=== PATIENT | female | born 1975 | race Caucasian/White ===

== ENCOUNTER 2020-01-29 19:00 | Emergency (ER) | payer BC, MEDICAID ==
--- NOTE | 2020-01-29 20:05 | EDM.PDOC ---
ED HPI GENERAL MEDICAL PROBLEM - General Chief Complaint: Respiratory Problem Stated Complaint: POSSIBLE ANEMIA Time Seen by Provider: 01/29/20 19:24 Source of Information: Reports: Patient History Limitations: Reports: No Limitations - History of Present Illness INITIAL COMMENTS - FREE TEXT/NARRATIVE: Presents reporting the patient states that she was diagnosed with pneumonia about 2 weeks ago over in [place] where she resides. She has since been on "2 rounds of antibiotics and 3 rounds of steroids". She came here because she has pain from coughing around her lower rib cage and abdomen. She wants to be put on IV antibiotics but her physicians in [place] have declined, instead placing her on oral antibiotics. States she had two negative Covid tests. She has a history of anemia, myasthenia gravis, hypertension, polycythemia vera and bipolar disorder. She smokes cigarettes. Been taking nebulizer treatments at home. generalized Pain Score (Numeric/FACES): 8 - Related Data Allergies Allergy/AdvReac Type Severity Reaction Status Date / Time adhesive tape Allergy Blisters Verified 01/29/20 19:15 bupropion [From Wellbutrin] Allergy Anaphylactic Verified 01/29/20 19:15 Shock hydromorphone [From Dilaudid] Allergy Rash Verified 01/29/20 19:15 Latex, Natural Rubber Allergy Anaphylactic Verified 01/29/20 19:15 Shock varenicline [From Chantix] Allergy Anaphylactic Verified 01/29/20 19:15 Shock Home Meds: Home Meds Albuterol [Ventolin HFA] 18 gm IH ASDIRECTED 01/29/20 [History] Budesonide [Pulmicort Flexhaler] 1 puff INH ASDIRECTED 01/29/20 [History] Doxepin [SINEquan] 10 mg PO DAILY 01/29/20 [History] FLUoxetine [Fluoxetine HCl] 100 mg PO DAILY 01/29/20 [History] LORazepam [Ativan] 1 mg PO ASDIRECTED 01/29/20 [History] Nitroglycerin 1 tab PO Q5M PRN 01/29/20 [History] Orphenadrine [Norflex] 100 mg PO DAILY 01/29/20 [History] Prazosin [Minpress] 1 mg PO DAILY 01/29/20 [History] Promethazine [Phenergan] 12.5 mg PO DAILY 01/29/20 [History] Promethazine/Phenyleph/Codeine [Pzknzmrtsaqm-CG-Fkzyaej Syrup] 0 mg PO ASDIRECTED 01/29/20 [History] QUEtiapine [SEROquel] 300 mg PO DAILY 01/29/20 [History] SUMAtriptan [Imitrex] 100 mg PO DAILY 01/29/20 [History] Topiramate 150 mg PO BID 01/29/20 [History] hydrOXYzine HCL [hydrOXYzine] 50 mg PO DAILY 01/29/20 [History] lamoTRIgine [Lamotrigine] 25 mg PO DAILY 01/29/20 [History] predniSONE [Prednisone] 10 mg PO DAILY 01/29/20 [History] Past Medical History Cardiovascular History: Reports: Angina, High Cholesterol, Hypertension Respiratory History: Reports: Asthma, Bronchitis, Recurrent Genitourinary History: Reports: UTI, Recurrent, Other (See Below) Other Genitourinary History: Chronic BV 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: Musculoskeletal History: Reports: Arthritis, Fibromyalgia Neurological History: Reports: Migraines Psychiatric History: Reports: Bipolar, Depression, PTSD Endocrine/Metabolic History: Reports: Diabetes, Type II Hematologic History: Reports: Anemia Other Hematologic History: Autoimmune disorders - Infectious Disease History Infectious Disease History: Reports: Chicken Pox, Shingles - Past Surgical History HEENT Surgical History: Reports: Tonsillectomy Other Cardiovascular Surgeries/Procedures: angiogram GI Surgical History: Reports: Cholecystectomy Other GI Surgeries/Procedures: Gastric bypass surgery. Partial intestine removal Female Surgical History: Reports: Hysterectomy, Kidney stone extraction Social & Family History - Tobacco Use Tobacco Use Status *Q: Current Every Day Tobacco User Years of Tobacco use: 30 Packs/Tins Daily: 0.2 - Recreational Drug Use Recreational Drug Use: Yes Recreational Drug Type: Reports: Marijuana/Hashish Recreational Drug Use Frequency: Socially ED ROS GENERAL - Review of Systems Review Of Systems: Comprehensive ROS is negative, except as noted in HPI. Constitutional: Denies: Fever ED EXAM, GENERAL - Physical Exam Exam: See Below General Appearance: Alert, No Apparent Distress Ears: Normal External Exam, Normal TMs Nose: Normal Inspection Throat/Mouth: Normal Inspection, Normal Oropharynx Head: Atraumatic, Normocephalic Neck: Normal Inspection Respiratory/Chest: No Respiratory Distress, Lungs Clear, Normal Breath Sounds Cardiovascular: Normal Peripheral Pulses, Regular Rate, Rhythm, No Murmur GI/Abdominal: Soft Back Exam: Normal Inspection Extremities: Normal Inspection Neurological: Alert, Oriented, Normal Cognition Psychiatric: Normal Affect, Normal Mood Skin Exam: Warm, Dry, Intact, Normal Color, No Rash Lymphatic: No Adenopathy Course - Vital Signs Last Recorded V/S: Last Vital Signs Temp 36.4 C 01/29/20 19:24 Pulse 94 01/29/20 19:24 Resp 17 01/29/20 19:24 BP 125/82 01/29/20 19:24 Pulse Ox 105 H 01/29/20 19:24 - Orders/Labs/Meds Labs: Laboratory Tests 01/29/20 01/29/20 Range/Units 20:15 20:15 WBC 12.97 H (4.0-11.0) K/uL RBC 4.97 (4.30-5.90) M/uL Hgb 14.0 (12.0-16.0) g/dL Hct 42.4 (36.0-46.0) % MCV 85.3 (80.0-98.0) fL MCH 28.2 (27.0-32.0) pg MCHC 33.0 (31.0-37.0) g/dL RDW Std Deviation 58.4 (28.0-62.0) fl RDW Coeff of Cassie 19 H (11.0-15.0) % Plt Count 254 (150-400) K/uL MPV 8.80 (7.40-12.00) fL Neut % (Auto) 80.6 H (48.0-80.0) % Lymph % (Auto) 13.0 L (16.0-40.0) % [place] % (Auto) 5.0 (0.0-15.0) % Eos % (Auto) 0.9 (0.0-7.0) % Baso % (Auto) 0.5 (0.0-1.5) % Neut # (Auto) 10.5 H (1.4-5.7) K/uL Lymph # (Auto) 1.7 (0.6-2.4) K/uL [place] # (Auto) 0.7 (0.0-0.8) K/uL Eos # (Auto) 0.1 (0.0-0.7) K/uL Baso # (Auto) 0.1 (0.0-0.1) K/uL Nucleated RBC % 0.0 /100WBC Nucleated RBCs # 0 K/uL Sodium 142 (136-145) mmol/L Potassium 3.9 (3.5-5.1) mmol/L Chloride 110 H (98-107) mmol/L Carbon Dioxide 19.1 L (21.0-32.0) mmol/L BUN 14 (7.0-18.0) mg/dL Creatinine 0.9 (0.6-1.0) mg/dL Est Cr Clr Drug Dosing 70.32 mL/min Estimated GFR (MDRD) > 60.0 ml/min Glucose 83 (74-106) mg/dL Calcium 8.1 L (8.5-10.1) mg/dL Total Bilirubin 0.2 (0.2-1.0) mg/dL AST 16 (15-37) IU/L ALT 31 (14-63) IU/L Alkaline Phosphatase 109 (46-116) U/L Total Protein 6.1 L (6.4-8.2) g/dL Albumin 3.0 L (3.4-5.0) g/dL Globulin 3.1 (2.6-4.0) g/dL Albumin/Globulin Ratio 1.0 (0.9-1.6) - Re-Assessments/Exams Free Text/Narrative Re-Assessment/Exam: 01/29/20 20:58 Since oxygen saturation has been 95% her entire visit. No dyspnea. She has been playing on her phone. She does have a harsh dry cough. Departure - Departure Time of Disposition: 20:58 Disposition: Home, Self-Care 01 Condition: Good Clinical Impression: Bronchitis Sinusitis Qualifiers: Sinusitis location: unspecified location - Discharge Information Referrals: PCP,Not In Area [Primary Care Provider] - Forms: ED Department Discharge Additional Instructions: The following information is given to patients seen in the emergency department who are being discharged to home. This information is to outline your options for follow-up care. We provide all patients seen in our emergency department with a follow-up referral. The need for follow-up, as well as the timing and circumstances, are variable depending upon the specifics of your emergency department visit. If you don't have a primary care physician on staff, we will provide you with a referral. We always advise you to contact your personal physician following an emergency department visit to inform them of the circumstance of the visit and for follow-up with them and/or the need for any referrals to a consulting specialist. The emergency department will also refer you to a specialist when appropriate. This referral assures that you have the opportunity for follow-up care with a specialist. All of these measure are taken in an effort to provide you with optimal care, which includes your follow-up. Under all circumstances we always encourage you to contact your private physician who remains a resource for coordinating your care. When calling for follow-up care, please make the office aware that this follow-up is from your recent emergency room visit. If for any reason you are refused follow-up, please contact the [facility] Emergency Department at and asked to speak to the emergency department charge nurse. 1. Follow Up with your primary provider in [place] 2. Flonase or Nasocort 2 sprays in each nostril at bedtime. 3. Do not smoke Sepsis Event Note (ED) - Evaluation Sepsis Screening Result: No Definite Risk - Focused Exam Vital Signs: Vital Signs Temp Pulse Resp BP Pulse Ox 01/29/20 19:24 36.4 C 94 17 125/82 105 H
--- NOTE | 2020-01-29 20:50 | CR ---
Indication: Pain shortness of breath Technique: Chest 2 views Comparison: None Findings: There is mild interstitial prominence seen throughout the bilateral hemithoraces likely representing mild pulmonary edema. There is no dense consolidation, effusion, or pneumothorax. The cardiac silhouette is within normal limits. The bony thorax is intact. There is a left-sided Port-A-Cath in satisfactory position. Impression: Mild interstitial prominence likely representing developing pulmonary vascular congestion. Dictated by Dandy Velázquez MD @ Jan 29 2020 8:47PM Signed by Dr. Dandy Velázquez @ Jan 29 2020 8:48PM
[2020-01-29 20:52] LABS: BLOOD UREA NITROGEN,BUN 14 mg/dL (7.0-18.0); CARBON DIOXIDE,CO2 19.1 mmol/L (21.0-32.0); CHLORIDE,CL 110 mmol/L (98-107); GLUCOSE RANDOM 83 mg/dL (74-106); POTASSIUM,K 3.9 mmol/L (3.5-5.1); SODIUM,NA 142 mmol/L (136-145)
== END 2020-01-29 21:10 | disposition home or self-care (01) ==
LOC: MW.ED 19:00
DX: J40 Bronchitis, not specified as acute or chronic (principal); J32.9 Chronic sinusitis, unspecified; E11.9 Type 2 diabetes mellitus without complications; F31.9 Bipolar disorder, unspecified; I10 Essential (primary) hypertension; G43.909 Migraine, unspecified, not intractable, without status migrainosus; F17.210 Nicotine dependence, cigarettes, uncomplicated; Z91.048 Other nonmedicinal substance allergy status; Z88.8 Allergy status to other drugs, medicaments and biological substances; Z88.5 Allergy status to narcotic agent; Z91.040 Latex allergy status
CPT/HCPCS: 36415; 71046; 71046-26; 80053; 85025; 99283; 99283-25

== ENCOUNTER 2020-02-14 14:24 | Emergency (ER) | payer MEDICAID ==
--- NOTE | 2020-02-14 14:52 | EDM.PDOC ---
<Lorenzo Manning - Last Filed: 02/14/20 14:49> ED HPI GENERAL MEDICAL PROBLEM - General Chief Complaint: Chest Pain Stated Complaint: CHEST PAIN Time Seen by Provider: 02/14/20 14:38 Source of Information: Reports: Patient - History of Present Illness INITIAL COMMENTS - FREE TEXT/NARRATIVE: Patient is a 44-year-old female presents today for chest pain that started this morning. Patient the chest pain to the left side rating to the right side of her neck. Patient took 2 nitro relieved the pain. Patient that she has chest pain on and off every self many months. Patient had a negative stress and cath per her 2 years ago. Patient denies any shortness of breath fever chills nausea vomiting. headache, L chest Pain Score (Numeric/FACES): 8 - Related Data Allergies Allergy/AdvReac Type Severity Reaction Status Date / Time adhesive tape Allergy Blisters Verified 02/14/20 14:32 bupropion [From Wellbutrin] Allergy Anaphylactic Verified 02/14/20 14:32 Shock hydromorphone [From Dilaudid] Allergy Rash Verified 02/14/20 14:32 Latex, Natural Rubber Allergy Anaphylactic Verified 02/14/20 14:32 Shock varenicline [From Chantix] Allergy Anaphylactic Verified 02/14/20 14:32 Shock Home Meds: Home Meds Albuterol [Ventolin HFA] 18 gm IH ASDIRECTED 01/29/20 [History] Budesonide [Pulmicort Flexhaler] 1 puff INH ASDIRECTED 01/29/20 [History] Doxepin [SINEquan] 10 mg PO DAILY 01/29/20 [History] FLUoxetine [Fluoxetine HCl] 100 mg PO DAILY 01/29/20 [History] LORazepam [Ativan] 1 mg PO ASDIRECTED 01/29/20 [History] Nitroglycerin 1 tab PO Q5M PRN 01/29/20 [History] Orphenadrine [Norflex] 100 mg PO DAILY 01/29/20 [History] Prazosin [Minpress] 1 mg PO DAILY 01/29/20 [History] Promethazine [Phenergan] 12.5 mg PO DAILY 01/29/20 [History] Promethazine/Phenyleph/Codeine [Tknouurprqkk-UC-Cfhbzlu Syrup] 0 mg PO ASDIRECTED 01/29/20 [History] QUEtiapine [SEROquel] 300 mg PO DAILY 01/29/20 [History] SUMAtriptan [Imitrex] 100 mg PO DAILY 01/29/20 [History] Topiramate 150 mg PO BID 01/29/20 [History] hydrOXYzine HCL [hydrOXYzine] 50 mg PO DAILY 01/29/20 [History] lamoTRIgine [Lamotrigine] 25 mg PO DAILY 01/29/20 [History] predniSONE [Prednisone] 10 mg PO DAILY 01/29/20 [History] Past Medical History Cardiovascular History: Reports: Angina, High Cholesterol, Hypertension Respiratory History: Reports: Asthma, Bronchitis, Recurrent Genitourinary History: Reports: UTI, Recurrent, Other (See Below) Other Genitourinary History: Chronic BV 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: Musculoskeletal History: Reports: Arthritis, Fibromyalgia, Other (See Below) Other Musculoskeletal History: Myasthenia Gravis Neurological History: Reports: Migraines Psychiatric History: Reports: Bipolar, Depression, PTSD Endocrine/Metabolic History: Reports: Diabetes, Type II Hematologic History: Reports: Anemia Other Hematologic History: Autoimmune disorders - Infectious Disease History Infectious Disease History: Reports: Chicken Pox, Mononucleosis, Shingles - Past Surgical History HEENT Surgical History: Reports: Tonsillectomy Other Cardiovascular Surgeries/Procedures: angiogram GI Surgical History: Reports: Cholecystectomy Other GI Surgeries/Procedures: Gastric bypass surgery. Partial intestine removal Female Surgical History: Reports: Hysterectomy, Kidney stone extraction Social & Family History - Family History Family Medical History: No Pertinent Family History Cardiac: Reports: CAD, [place] - Tobacco Use Tobacco Use Status *Q: Current Every Day Tobacco User Years of Tobacco use: 30 Packs/Tins Daily: 1 - Recreational Drug Use Recreational Drug Use: No ED ROS GENERAL - Review of Systems Review Of Systems: Comprehensive ROS is negative, except as noted in HPI. Constitutional: Reports: No Symptoms HEENT: Reports: No Symptoms Respiratory: Reports: No Symptoms Cardiovascular: Reports: Chest Pain Endocrine: Reports: No Symptoms GI/Abdominal: Reports: No Symptoms : Reports: No Symptoms Musculoskeletal: Reports: No Symptoms Skin: Reports: No Symptoms Neurological: Reports: No Symptoms Psychiatric: Reports: No Symptoms Hematologic/Lymphatic: Reports: No Symptoms Immunologic: Reports: No Symptoms ED EXAM, GENERAL - Physical Exam Exam: See Below Exam Limited By: No Limitations General Appearance: Alert, No Apparent Distress Eye Exam: Bilateral Eye: EOMI, PERRL Respiratory/Chest: No Respiratory Distress, Lungs Clear Cardiovascular: Regular Rate, Rhythm GI/Abdominal: Normal Bowel Sounds, Soft, Non-Tender Extremities: Normal Range of Motion Neurological: Alert, Oriented, CN II-XII Intact, Normal Cognition #1 Interpretation EKG Date: 02/14/20 Time: 14:30 Rhythm: NSR Rate (Beats/Min): 96 ST-T: Normal Departure - Departure Disposition: Home, Self-Care 01 Clinical Impression: Chest pain - Discharge Information Instructions: Nonspecific Chest Pain, Adult, Chest Wall Pain, [id number] Referrals: Rafael Killian MD [Ordering Only Provider] - 3 Days Forms: ED Department Discharge Additional Instructions: The need for follow-up, as well as the timing and circumstances, are variable depending upon the specifics of your emergency department visit. If you don't have a primary care physician on staff, we will provide you with a referral. We always advise you to contact your personal physician following an emergency department visit to inform them of the circumstance of the visit and for follow-up with them and/or the need for any referrals to a consulting specialist. The emergency department will also refer you to a specialist when appropriate. This referral assures that you have the opportunity for follow-up care with a specialist. All of these measure are taken in an effort to provide you with optimal care, which includes your follow-up. Under all circumstances we always encourage you to contact your private p hysician who remains a resource for coordinating your care. When calling for follow-up care, please make the office aware that this follow-up is from your recent emergency room visit. If for any reason you are refused follow-up, please contact the [facility] Emergency Department at and asked to speak to the emergency department charge nurse. If you do not have a primary care doctor, please follow up with the clinics below within 3-5 days. Claudia Reyes [facility] - Primary [facility] [address] [place] [id number] [address] [address] Sepsis Event Note (ED) - Evaluation Sepsis Screening Result: No Definite Risk - Assessment/Plan Plan: Patient is a 44-year-old female presents today for chest pain. Patient has a heart score of 2 due to risk factors. Will obtain EKG x-ray labs and reassess. <Cl Lewis - Last Filed: 02/14/20 20:27> ED HPI GENERAL MEDICAL PROBLEM - General History Limitations: Reports: No Limitations Course - Vital Signs Last Recorded V/S: Last Vital Signs Temp 97.2 F 02/14/20 14:28 Pulse 80 02/14/20 20:11 Resp 16 02/14/20 20:11 BP 127/85 02/14/20 20:11 Pulse Ox 95 02/14/20 20:11 - Orders/Labs/Meds Orders: Active Orders 24 hr Category Date Time Status Heparin Sodium [Heparin Lock Flush 100 Units/ML] Med 02/14/20 18:48 Active 500 units FLUSH ASDIRECTED PRN Medication Orders Heparin Sodium (Porcine) (Heparin Lock Flush 100 Units/Ml) 500 units FLUSH ASDIRECTED PRN PRN Reason: Heparin Lock Labs: Laboratory Tests 02/14/20 02/14/20 02/14/20 Range/Units 14:30 14:30 18:45 WBC 11.79 H (4.0-11.0) K/uL RBC 5.46 (4.30-5.90) M/uL Hgb 15.4 (12.0-16.0) g/dL Hct 46.5 H (36.0-46.0) % MCV 85.2 (80.0-98.0) fL MCH 28.2 (27.0-32.0) pg MCHC 33.1 (31.0-37.0) g/dL RDW Std Deviation 57.8 (28.0-62.0) fl RDW Coeff of Cassie 19 H (11.0-15.0) % Plt Count 263 (150-400) K/uL MPV 8.80 (7.40-12.00) fL Neut % (Auto) 65.2 (48.0-80.0) % Lymph % (Auto) 23.9 (16.0-40.0) % [place] % (Auto) 6.9 (0.0-15.0) % Eos % (Auto) 3.5 (0.0-7.0) % Baso % (Auto) 0.5 (0.0-1.5) % Neut # (Auto) 7.7 H (1.4-5.7) K/uL Lymph # (Auto) 2.8 H (0.6-2.4) K/uL [place] # (Auto) 0.8 (0.0-0.8) K/uL Eos # (Auto) 0.4 (0.0-0.7) K/uL Baso # (Auto) 0.1 (0.0-0.1) K/uL Nucleated RBC % 0.0 /100WBC Nucleated RBCs # 0 K/uL Sodium 140 (136-145) mmol/L Potassium 4.4 (3.5-5.1) mmol/L Chloride 108 H (98-107) mmol/L Carbon Dioxide 19.9 L (21.0-32.0) mmol/L BUN 13 (7.0-18.0) mg/dL Creatinine 1.3 H (0.6-1.0) mg/dL Est Cr Clr Drug Dosing 48.68 mL/min Estimated GFR (MDRD) 44.9 ml/min Glucose 105 (74-106) mg/dL Calcium 8.3 L (8.5-10.1) mg/dL Total Bilirubin 0.2 (0.2-1.0) mg/dL AST 32 (15-37) IU/L ALT 62 (14-63) IU/L Alkaline Phosphatase 88 (46-116) U/L Creatine Kinase 41 (26-308) U/L Troponin I < 0.050 < 0.050 (0.000-0.056) ng/mL Total Protein 6.4 (6.4-8.2) g/dL Albumin 3.3 L (3.4-5.0) g/dL Globulin 3.1 (2.6-4.0) g/dL Albumin/Globulin Ratio 1.1 (0.9-1.6) Meds: Medications Generic Name Dose Route Start Last Admin Trade Name Freq PRN Reason Stop Dose Admin Heparin Sodium (Porcine) 500 units 02/14/20 18:48 Heparin Lock Flush 100 Units/Ml FLUSH ASDIRECTED PRN Heparin Lock Discontinued Medications Generic Name Dose Route Start Last Admin Trade Name Freq PRN Reason Stop Dose Admin Aspirin 324 mg 02/14/20 14:53 02/14/20 15:04 Aspirin PO 02/14/20 14:54 324 mg ONETIME ONE Administration Diphenhydramine HCl 25 mg 02/14/20 17:47 02/14/20 18:04 Benadryl IVPUSH 02/14/20 17:48 25 mg ONETIME ONE Administration Metoclopramide HCl 10 mg 02/14/20 17:47 02/14/20 18:04 Reglan IVPUSH 02/14/20 17:48 10 mg ONETIME ONE Administration Departure - Departure Time of Disposition: 20:25 Condition: Good - Discharge Information *PRESCRIPTION DRUG MONITORING PROGRAM REVIEWED*: Not Applicable *COPY OF PRESCRIPTION DRUG MONITORING REPORT IN PATIENT SHAUN: Not Applicable Sepsis Event Note (ED) - Focused Exam Vital Signs: Vital Signs Temp Pulse Resp BP Pulse Ox 02/14/20 20:11 80 16 127/85 95 02/14/20 15:42 81 16 133/87 95 02/14/20 14:57 81 147/96 H 95 02/14/20 14:28 97.2 F 100 16 146/94 H 96
[2020-02-14] MEDS ORDERED: Aspirin 81 MG Tab.Chew PO ONE (14:53)
--- NOTE | 2020-02-14 15:42 | CR ---
INDICATION: Chest pain TECHNIQUE: Chest 2 views. COMPARISON: January 29, 2020 FINDINGS: Cardiovascular and mediastinum: Heart size and vasculature are normal in caliber and appearance. Mediastinum is within normal limits. Left-sided Port-A-Cath tip terminates at the level of the proximal right atrium. Lungs and pleural spaces: Lungs are clear. No sign of infiltrate or mass. No sign of pleural effusion. No pneumothorax. Bones and soft tissues: No significant findings. IMPRESSION: No sign of acute disease. Dictated by Doris Capellan MD @ Feb 14 2020 3:39PM Signed by Dr. Doris Capellan @ Feb 14 2020 3:39PM
[2020-02-14 16:51] LABS: BLOOD UREA NITROGEN,BUN 13 mg/dL (7.0-18.0); CARBON DIOXIDE,CO2 19.9 mmol/L (21.0-32.0); CHLORIDE,CL 108 mmol/L (98-107); GLUCOSE RANDOM 105 mg/dL (74-106); POTASSIUM,K 4.4 mmol/L (3.5-5.1); SODIUM,NA 140 mmol/L (136-145)
[2020-02-14] MEDS ORDERED: Metoclopramide 10 MG/2 ML SDV IVPUSH ONE (17:47)
[2020-02-14] MEDS ORDERED: diphenhydrAMINE 50 MG/ML SDV IVPUSH ONE (17:47)
== END 2020-02-14 20:36 | disposition home or self-care (01) ==
LOC: MW.ED 14:24
DX: R07.9 Chest pain, unspecified (principal); I10 Essential (primary) hypertension; J45.909 Unspecified asthma, uncomplicated; G70.00 Myasthenia gravis without (acute) exacerbation; F31.9 Bipolar disorder, unspecified; E11.9 Type 2 diabetes mellitus without complications; F17.210 Nicotine dependence, cigarettes, uncomplicated; Z91.048 Other nonmedicinal substance allergy status; Z88.8 Allergy status to other drugs, medicaments and biological substances; Z88.5 Allergy status to narcotic agent; Z91.040 Latex allergy status
CPT/HCPCS: 36415; 71046; 80053; 82550; 84484; 85025; 93005; 96374; 96375; 99285; A9270; J1200; J1642; J2765; 93010; 99283